=== PATIENT | female | born 1995 | race Caucasian/White ===

== ENCOUNTER 2017-06-11 20:51 | Emergency (ER) | payer OTHER ==
[2017-06-11 20:58] VITALS: BP 136/74
[2017-06-11] MEDS ORDERED: LIDOCAINE 1% INJ-PF (10 MG/ML) 30 ML SDV INJ ONE (23:02)
--- NOTE | 2017-06-11 23:05 | ER Document Report ---
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 States that she thinks it may be an abscess. Had her mother poke at it with a needle but could not get anything to drain. Continues to get more swollen and red. Denies any fevers, chills, sweats. No change in bowel or bladder function. Hurts to sit down. Never has had this happen before. No black tarry stools. No blood in the stool. No change in bowel patterns. TRAVEL OUTSIDE OF THE [place] IN LAST 30 DAYS: No - HPI Onset/Duration: Gradual Quality of pain: Dull, Throbbing Pain Level: 3 Context: denies: Injury, Spontaneous, Work related, Other Skin Temperature: Warm Skin Color: Normal - Related Data Allergies/Adverse Reactions: No Known Allergies Allergy (Unverified 06/11/17 20:55) Past Medical History - General Information source: Patient - Social History Smoking Status: Never Smoker Frequency of alcohol use: None Drug Abuse: None Lives with: Alone Family History: Reviewed & Not Pertinent - Medical History Medical History: Negative Review of Systems - Review of Systems Constitutional: No symptoms reported Cardiovascular: No symptoms reported Respiratory: No symptoms reported Gastrointestinal: No symptoms reported Musculoskeletal: No symptoms reported Skin: See HPI, Other - Lesion on the buttock area Physical Exam - Vital signs Vitals: Temp Pulse Resp BP Pulse Ox 98.9 F 82 18 136/74 H 99 06/11/17 20:57 06/11/17 20:57 06/11/17 20:57 06/11/17 20:57 06/11/17 20:57 Interpretation: Normal - General General appearance: Appears well, Alert - Respiratory Respiratory status: No respiratory distress Chest status: Nontender Breath sounds: Normal Chest palpation: Normal - Cardiovascular Rhythm: Regular Heart sounds: Normal auscultation Murmur: No - Extremities General upper extremity: Normal inspection General lower extremity: Normal inspection - Skin Skin Temperature: Warm Skin Moisture: Dry Skin Color: Other - There is a swollen erythematous area on the supra gluteal fold, just superior to the fold on the left. Surrounding erythema. Course - Re-evaluation Re-evalutation: 06/11/17 23:07 Patient appears to have a pilonidal cyst abscess. Ultrasound was used to determine if there was a large fluid collection. Patient does appear to have significant fluid collection. Will prep for I&D at this time. Patient was given the risks and benefits of the procedure. Patient consents to the procedure verbally. 06/11/17 23:53 Abscess was I&D's. Please see procedure. No complications. Will give antibiotics, pain medication. [place] Will [place] at this time. Advised that she would likely need to be seen by surgeon. - Vital Signs Vital signs: Temp Pulse Resp BP Pulse Ox 98.9 F 82 18 136/74 H 99 06/11/17 20:57 06/11/17 20:57 06/11/17 20:57 06/11/17 20:57 06/11/17 20:57 Procedures - Incision and Drainage Left Upper Buttock Type: Simple Anesthetic type: 1% Lidocaine mL's of anesthetic: 8 Blade size: 11 I&D procedure: Shurclens applied Incision Method: Incision made by scalpel Amount/type of drainage: 5 ml thick yellow Adult Front & Back picture: 1 - Pilonidal abscess Discharge - Discharge Clinical Impression: Pilonidal abscess Condition: Good Disposition: HOME, SELF-CARE Instructions: Abscess ([facility]) Prescriptions: Cephalexin Monohydrate [Keflex 500 mg Capsule] 500 mg PO Q6H 5 Days capsule Hydrocodone/Acetaminophen [(ER) Boyd 5-325 mg Tabs #6 ER Disp] 1 tab PO Q6H PRN 1 Days #3 dspk PRN Reason: Sulfamethoxazole/Trimethoprim [Bactrim Ds Tablet] 1 each PO BID 5 Days #10 tablet
[2017-06-11] MEDS ORDERED: CEPHALEXIN 500 MG CAPSULE PO ONE (23:54)
[2017-06-11] MEDS ORDERED: SULFAMETHOXAZOLE/TRIMETHOPRIM 800-160 MG TABLET PO ONE (23:54)
[2017-06-11] MEDS ORDERED: OXYCODONE-ACETAMINOPHEN 5-325 MG TABLET PO ONE (23:54)
[2017-06-11] MEDS ORDERED: HYDROCODONE/ACETAMINOPHEN 5-325 MG 6 TAB/DSPK PO PRN (23:59)
== END 2017-06-12 00:44 | disposition home or self-care (01) ==
LOC: ER 20:51
PROC: 0H98XZZ Drainage of Buttock Skin, External Approach (ICD-10-PCS; principal; 2017-06-11)
DX: L05.01 Pilonidal cyst with abscess (principal)
CPT/HCPCS: 87070; 87075; 87077; 87186; 87205; 99283